=== PATIENT | female | born 1990 | race Caucasian/White ===

== ENCOUNTER → 2021-08-02 15:16 | Outpatient (CLI) | payer OTHER, SELFPAY ==
--- NOTE | ~2021-08-02 | US_ITS ---
EXAMINATION: US pelvic complete DATE: 08/02/2021 15:40 INDICATION: Pelvic and perineal pain Comparison:No prior studies for comparison. TECHNIQUE: Multiple transabdominal and endovaginal sonographic images of the pelvis performed. FINDINGS: The uterus measures 10.1 x 4.6 x 6 cm. The endometrial complex measures 1 cm. The right ovary measures 4.7 x 3.3 x 3.3 cm and the left ovary measures 3.4 x 3.2 x 3.3 cm. There ar e small follicles in each ovary. Normal doppler signal in both ovaries. There is no free fluid in the pelvis. There are no abnormal masses seen on either side. IMPRESSION: 1. Mildly enlarged uterus. Reviewed, dictated and finalized at location A. ENSATION SPECIALIST IMPRESSION: 1. Mildly enlarged uterus.
== END ==
PROVIDERS: Visit Provider Nurse Practitioner
DX: R10.2 Pelvic and perineal pain (principal); N85.2 Hypertrophy of uterus
CPT/HCPCS: 76856

== ENCOUNTER → 2021-10-25 10:43 | Outpatient (CLI) | payer OTHER, SELFPAY ==
--- NOTE | ~2021-10-25 | US_ITS ---
US OB transvaginal DATE: 10/25/2021 11:05 INDICATION: age determination TECHNIQUE: Real-time imaging via transvaginal approach and Doppler analysis COMPARISON: 08/02/2021 pelvic ultrasound FINDINGS: The uterus measures 8.7 cm height, There is a laterally situated rounded sonolucency on the right, with surrounding hyperechogenicity, w hich may be an intrauterine gestational sac displaced by large uterine fibroid or possibly situated i n a bicornuate uterus. Mean sac diameter of 0.67 cm. No pole or yolk sac is identified. Follow- up ultrasound imaging is recommended. Right ovary measures 3.7 x 3.2 x 3.9 cm. Left ovary measures 2.7 x 1.8 x 1.7 cm. IMPRESSION: Possible right lateral early intrauterine gestational sac; recommend short-term follow-up obstetrical ultrasound imaging Reviewed, dictated and finalized at Location A. Reviewed, dictated and finalized at location A. IMPRESSION: Possible right lateral early intrauterine gestational sac; recommen d short-term follow-up obstetrical ultrasound imaging
== END ==
PROVIDERS: Visit Provider Obstetrics & Gynecology Gynecology
DX: O09.01 Supervision of pregnancy with history of infertility, first trimester (principal); Z3A.00 Weeks of gestation of pregnancy not specified
CPT/HCPCS: 76817

== ENCOUNTER → 2021-11-01 11:20 | Outpatient (CLI) | payer OTHER, SELFPAY ==
--- NOTE | ~2021-11-01 | US_ITS ---
EXAMINATION: US OB transvaginal DATE: 11/01/2021 11:49 INDICATION: Inappropriate change and quantitative hCG during first trimester TECHNIQUE: Real-time pelvic transabdominal and transvaginal ultrasound was performed. COMPARISON: 10/25/2021 FINDINGS: The uterus measures 10.3 x 5.5 x 6.6 cm. There is an intrauterine gestational sac. A 0.9 x 0.6 x 1.0 cm hypoechoic area seen adjacent to the gestational sac. No definite pole is identif ied. The mean sac diameter measures, which correlates with an estimated gestational age of 6 weeks an d 0 day(s) (+/-) 4 day(s). The right ovary measures 3.8 x 2.4 x 3.3 cm. The left ovary measures 2.7 x 2.0 x 3.0 cm. There is nor mal vascular flow in the ovaries. There is no free fluid in the pelvis. IMPRESSION: 1. Intrauterine gestational sac with an estimated gestational age of 6 weeks and 0 day(s) (+/-) 4 day (s) and an estimated delivery date of 06/27/2022. No definite pole identified. 2. Small subchorionic hematoma. Reviewed, dictated and finalized at location B. IMPRESSION: 1. Intrauterine gestational sac with an estimated gestational age of 6 weeks an d 0 day(s) (+/-) 4 day(s) and an estimated delivery date of 06/27/2022. No defi nite pole identified. 2. Small subchorionic hematoma.
== END ==
PROVIDERS: Visit Provider Obstetrics & Gynecology Gynecology
DX: O02.81 Inappropriate change in quantitative human chorionic gonadotropin (hCG) in early pregnancy (principal); Z3A.01 Less than 8 weeks gestation of pregnancy; O36.8911 Maternal care for other specified fetal problems, first trimester, fetus 1
CPT/HCPCS: 76817

== ENCOUNTER → 2021-11-08 08:05 | Outpatient (CLI) | payer OTHER, SELFPAY ==
--- NOTE | ~2021-11-08 | US_ITS ---
EXAMINATION: US OB transvaginal DATE: 11/08/2021 08:33 INDICATION: Spotting. Subchorionic hematoma. First trimester. TECHNIQUE: Real-time transvaginal pelvic ultrasound was performed. COMPARISON: Ultrasound 11/01/2021, 10/25/2021 FINDINGS: The uterus measures 11.4 x 7.0 x 6.9 cm. There is an intrauterine gestational sac. A yolk sac is iden tified. The crown rump length measures 1.3 cm, which correlates with an estimated gestational age of 7 weeks and 3 day(s) (+/-) 5 day(s). heart motion is identified measuring 158 beats per minute (bpm) by M-mode Doppler. There is a hypoechoic subchorionic hematoma measuring 1.7 x 0.5 x 1.1 cm. The right ovary measures 3.7 x 2.2 x 3.1 cm. The left ovary measures 3.4 x 2.4 x 2.9 cm. There i s no free fluid in the pelvis. IMPRESSION: 1. Single living intrauterine gestation with estimated date of delivery of 06/24/2022. 2. Small subchorionic hematoma. Reviewed, dictated and finalized at location A. IMPRESSION: 1. Single living intrauterine gestation with estimated date of delivery of 06/2022. 2. Small subchorionic hematoma.
== END ==
PROVIDERS: PCP Obstetrics & Gynecology Gynecology; Visit Provider Obstetrics & Gynecology Gynecology
DX: O26.859 Spotting complicating pregnancy, unspecified trimester (principal)
CPT/HCPCS: 76817

== ENCOUNTER → 2021-11-22 15:17 | Outpatient (CLI) | payer OTHER, SELFPAY ==
--- NOTE | ~2021-11-22 | US_ITS ---
EXAMINATION: US OB transvaginal DATE: 11/22/2021 15:55 INDICATION: Spotting and subchorionic hematoma during first trimester TECHNIQUE: Real-time pelvic transabdominal and transvaginal ultrasound was performed. COMPARISON: 11/08/2021 FINDINGS: The uterus measures 10.7 x 6.1 x 8.3 cm. There is an intrauterine gestational sac. There i s a 1.9 x 0.7 cm hypoechoic area adjacent to the gestational sac without significant change. A yolk s ac is identified. heart motion is identified measuring 168 beats per minute (bpm) by M-mode Dop pler. The crown rump length measures 2.9 cm , which correlates with an estimated gestational ag e of 9 weeks and 5 day(s) (+/-) 6 day(s). The left ovary is not visualized however no left adnexal abnormality is seen. The right ovary measure s 3.6 x 3.3 x 3.4 cm. There is normal vascular flow in the right ovary. There is no free fluid in the pelvis. IMPRESSION: 1. Live intrauterine with an estimated gestational age of 9 weeks and 5 day(s) (+/-) 6 day( s) and an estimated delivery date of 06/22/2022. 2. Small subchronic hematoma without significant change. Reviewed, dictated and finalized at location A. IMPRESSION: 1. Live intrauterine with an estimated gestational age of 9 weeks and 5 day(s) (+/-) 6 day(s) and an estimated delivery date of 06/22/2022. 2. Small subchronic hematoma without significant change.
== END ==
PROVIDERS: Visit Provider Obstetrics & Gynecology Gynecology
DX: O36.8911 Maternal care for other specified fetal problems, first trimester, fetus 1 (principal); Z3A.08 8 weeks gestation of pregnancy
CPT/HCPCS: 76817

== ENCOUNTER → 2021-12-21 11:45 | Outpatient (CLI) | payer OTHER, SELFPAY ==
--- NOTE | ~2021-12-21 | US_ITS ---
EXAMINATION: US OB limited DATE: 12/21/2021 12:04 INDICATION: Follow-up subchorionic hematoma TECHNIQUE: Real-time transabdominal obstetric ultrasound. FINDINGS: Comparison to ultrasound dated 11/22/2021 The uterus measures 14.7 x 8.5 x 1.2 cm. There is a single intrauterine with heart ra te of 144 BPM. No evidence for subchorionic hemorrhage on the current examination. Amniotic fluid is subjectively normal. IMPRESSION: 1. Single living intrauterine with heart rate of 144 BPM. 2: Interval resolution of subchorionic hematoma. Reviewed, dictated and finalized at location A.
== END ==
PROVIDERS: PCP Internal Medicine Geriatric Medicine; Visit Provider Obstetrics & Gynecology Gynecology
DX: O36.8910 Maternal care for other specified fetal problems, first trimester, not applicable or unspecified (principal); O26.851 Spotting complicating pregnancy, first trimester; Z3A.13 13 weeks gestation of pregnancy
CPT/HCPCS: 76815

== ENCOUNTER → 2022-02-01 15:22 | Outpatient (CLI) | payer OTHER, SELFPAY ==
--- NOTE | ~2022-02-01 | US_ITS ---
EXAMINATION: US OB /maternal detail DATE: 02/01/2022 16:16 INDICATION: anatomic survey. TECHNIQUE: Real-time ultrasound of the pelvis was performed. COMPARISON: Ultrasound 12/21/2021, 10/25/2021, 11/01/21 FINDINGS: There is a single living fetus in variable presentation. The placenta is anterior, 2.5 cm from the c ervix. heart rate is 161 beats per minute (bpm). The amniotic fluid volume is subjectively norm al. The following biometric data were obtained: Biparietal diameter (BPD): 4.7 cm; head circumference (HC): 18.4 cm; abdominal circumference (AC): 14 .4 cm; femur length (FL): 3.0 cm. These measurements are discordant with high HC/AC ratio. Estimated weight is 307 g +/- 46 g, which correlates with the 70th percentile when 06/26/22 is used as estimated date of delivery. As single measurements, these parameters are each equal to the following estimated gestational ages w ith ranges of +/- 2 standard deviations: BPD: 20 weeks 2 days (18 weeks 4 days - 22 weeks 0 days). HC: 20 weeks 5 days (19 weeks 2 days - 22 weeks 2 days). AC: 19 weeks 5 days (17 weeks 5 days - 21 weeks 6 days). FL: 19 weeks 3 days (17 weeks 4 days - 21 weeks 1 days). estimated gestational age based solely on measurements from this exam is 20 weeks 0 days +/- 1 weeks 3 days. The head and spine are not well visualized. The heart is not well visualized. The kidneys are n ot well visualized. The lip, diaphragm, stomach, and bladder are normal. There are two umbilical mikey rosie to yield a 3-vessel cord. The cord insertion is normal. IMPRESSION: 1. Single living fetus in variable presentation. 2. Estimated weight is 307 g +/- 46 g, which correlates with the 70th percentile when 06/26/22 is used as estimated date of delivery. This date was set by ultrasound on 11/01/21. 3. Discordant biometrics with high HC/AC ratio. 4. Poorly visualized head, spine, heart, and kidneys. Otherwise normal anatomic survey. Reviewed, dictated and finalized at location A. IMPRESSION: 1. Single living fetus in variable presentation. 2. Estimated weight is 307 g +/- 46 g, which correlates with the 70th pe rcentile when 06/26/22 is used as estimated date of delivery. This date was set by ultrasound on 11/01/21. 3. Discordant biometrics with high HC/AC ratio. 4. Poorly visualized head, spine, heart, and kidneys. Otherwise normal fe moni anatomic survey.
== END ==
PROVIDERS: PCP Advanced Practice Midwife; Visit Provider Advanced Practice Midwife
DX: Z34.92 Encounter for supervision of normal pregnancy, unspecified, second trimester (principal); Z3A.20 20 weeks gestation of pregnancy
CPT/HCPCS: 76805

== ENCOUNTER 2022-05-24 09:34 | Outpatient (CLI) | payer OTHER, SELFPAY ==
[2022-05-24] VITALS (24 sets, daily range): BP systolic 125–147; BP diastolic 63–83; PULSE 76–87; RESP 18; O2SAT 98–100
[2022-05-24 10:51] LABS: Add Urine Microscopic? YES; Appearance Urine Cloudy (Clear); Bacteria Urine Trace /hpf; Bilirubin Urine Negative (Negative); Blood Urine Negative (Negative); Color Urine Yellow (Yellow); Glucose Urine UA Negative (Negative); Ketones Urine 1+ mg/dL (Negative); Leukocyte Esterase Ur 3+ LEU/UL (NEGATIVE); Mucus Urine Few /lpf; Nitrate Urine Negative (Negative); Protein Urine Negative (Negative); Squamous Epithelial Cell Urine Many /hpf (Few); Urobilinogen Urine Negative mg/dL (<2.0)
[2022-05-24 10:57] LABS: Basophils Percent Auto 0.4 % (0.2-1.2); Eosinophils Absolute Auto 0.1 K/mm3 (0-0.3); Eosinophils Percent Auto 1.5 % (0-4.4); Hematocrit 32.2 % (37.0-47.0); Hemoglobin 10.2 g/dL (12.0-15.0); Immature Granulocyte Absolute 0.04 K/mm3 (0.00-0.031); Immature Granulocyte Percent A 0.5 % (0-0.5); Lymphocytes Absolute Auto 1.76 K/mm3 (0.9-3.2); Lymphocytes Percent Auto 21.6 % (18.3-44.2); Mean Corpuscular HGB Conc 31.7 g/dl (32-36); Mean Corpuscular Hemoglobin 28.3 pg (26-34); Mean Corpuscular Volume 89.4 fl (80-100); Mean Platelet Volume 10.1 fl (7.4-10.4); Monocytes Absolute Auto 0.6 K/mm3 (0.1-0.6); Monocytes Percent Auto 7.6 % (2.6-8.5); Neutrophils Absolute Auto 5.6 K/mm3 (1.3-6.7); Neutrophils Percent Auto 68.4 % (45.5-73.1); Platelet Count Result 192 k/mm3 (150-375); Red Cell Distribution Width 14.4 % (11.5-14.5); White Blood Count 8.1 K/mm3 (4.5-10.0)
[2022-05-24 10:59] LABS: Creatinine Urine 181.2 mg/dL; Total Protein Urine Random 7 mg/dL; Ur Ttl Prot Creatinine Ratio 0.04 mg/mg (0-0.20)
[2022-05-24 11:12] LABS: Alanine Aminotransferase 14 U/L (6-35); Albumin Level 3.8 g/dL (3.5-5.1); Alkaline Phosphatase 84 U/L (38-126); Anion Gap 13 mmol/L (8-16); Aspartate Amino Transferase 15 U/L (14-36); Bilirubin,Total 0.3 mg/dL (0.2-1.3); Blood Urea Nitrogen 6 mg/dL (7-17); Calcium 8.7 mg/dL (8.4-10.2); Carbon Dioxide 20 mmol/L (22-30); Chloride 105 mmol/L (98-107); Estimated Glomerular Filt Rate > 60; Glucose 83 mg/dL (65-110); Potassium 3.6 mmol/L (3.4-5.0); Sodium 138 mmol/L (137-145); Uric Acid 4.7 mg/dL (2.5-7.5)
--- NOTE | 2022-05-24 11:22 | PC.NURSE ---
[address] Kohler, labs and BP reviewed. Orders to send patient home with a 24 hour urine.
== END 2022-05-24 11:33 | disposition home or self-care (01) ==
LOC: ANHOBOP 09:46 → ANHOBPP 09:47
PROVIDERS: PCP Internal Medicine Geriatric Medicine; Visit Provider Obstetrics & Gynecology Gynecology
DX: O13.9 Gestational [pregnancy-induced] hypertension without significant proteinuria, unspecified trimester (principal); Z3A.00 Weeks of gestation of pregnancy not specified
CPT/HCPCS: 36415; 59025; 80053; 81001; 82570; 84156; 84550; 85025; 87086; 87088; 99199

== ENCOUNTER 2022-05-25 14:49 | Outpatient (NON) | payer OTHER, SELFPAY ==
[2022-05-25 16:23] VITALS: BMI 62.4
[2022-05-25 19:28] LABS: Collection Time Urine 24 HOURS
[2022-05-25 19:38] LABS: Total Volume 24 Hour Urine 1100 ml
[2022-05-25 19:47] LABS: Creatinine Clearance Urine 164.1 ml/min (75-125); Creatinine Urine 182.6 mg/dL; Patient Weight 352 Lbs; Total Protein Urine 24 Hr 66 mg/24hr (28-141); Total Protein Urine Random 6 mg/dL
== END 2022-05-25 14:50 | disposition home or self-care (01) ==
PROVIDERS: PCP Internal Medicine Geriatric Medicine; Visit Provider Obstetrics & Gynecology Gynecology
DX: O16.3 Unspecified maternal hypertension, third trimester (principal); Z3A.37 37 weeks gestation of pregnancy
CPT/HCPCS: 81050; 82575; 84156

== ENCOUNTER 2022-06-05 13:15 | Outpatient (CLI) | payer OTHER, SELFPAY ==
[2022-06-05 13:41] VITALS: BP 133/76; PULSE 91
[2022-06-05 13:46] VITALS: BP 122/74; PULSE 84
[2022-06-05 13:47] VITALS: BP 133/76; PULSE 81; BMI 51.9
[2022-06-05 14:01] VITALS: BP 112/76; PULSE 82
[2022-06-05] MEDS: ACETAMINOPHEN/BUTALBITAL/CAFFEINE 325-50-40 MG TABLET (FIORICET) 1 TAB PO (14:08)
[2022-06-05 14:12] VITALS: BP 112/76; PULSE 79
--- NOTE | 2022-06-05 15:21 | PC.NURSE ---
Dr. Gudino informed headache has decreased from a 6 to a 3, nausea has resolved. Pt had c/o feeling some leakage of fluid once yesterday; ROM plus test performed and was negative. Pt had felt a few more tightenings and requested being checked because her SVE in the office this week was 3 cm. SVE external os 3 cm, 60%, and ballotable. OK to discharge to home.
== END 2022-06-05 15:32 | disposition home or self-care (01) ==
LOC: ANHOBOP 13:20 → ANHOBPP 13:21
PROVIDERS: PCP Internal Medicine Geriatric Medicine; Visit Provider Obstetrics & Gynecology Gynecology
DX: R51.9 Headache, unspecified (principal)
CPT/HCPCS: 59025; 84112; 99199; A9270

== ENCOUNTER 2022-06-19 00:31 | Inpatient (IN) | payer OTHER, SELFPAY ==
[2022-06-19] VITALS (42 sets, daily range): BP systolic 56–226; BP diastolic 33–210; PULSE 78–251; RESP 16–18; TEMP 36.2–36.8; O2SAT 97–100
--- NOTE | 2022-06-19 00:31 | LDADM ---
This patient, Diya Rangel, was admitted to Labor/Delivery/Recovery 105 on 06/19/22 at 00:31. Plans for labor, pain management and were discussed with patient. Patient/family oriented to hospital policies and general routines including ID bracelet, bed and alarms, visiting hours, pain management, procedures, bathroom and other care routines, personal items, smoking policy, room service/diet and guest tray routines, infant security routines, and visiting hours. Patient/Family are encouraged to report perceived risks to care and to ask questions if they do not understand what they are told or what they should do. See OBIX for further documentation.
--- NOTE | 2022-06-19 01:03 | WPDANESEPP ---
Anes - Eval Pre Procedure Procedure: labor epidural Date/Time: 06/19/22 01:03 Surgeon: tiffani Preop Diagnosis: pain during labor Pre Op Diagnosis: Induction of Labor Patient Data Age: 31 Gender: F Height: Weight: Last Vital Signs Pulse 107 H 06/19/22 01:00 ANIMAL SITTER BP 162/99 H 06/19/22 01:00 ANIMAL SITTER Pulse Ox 99 06/19/22 01:56 ANIMAL SITTER Allergies Allergy/AdvReac Type Severity Reaction Status Date / Time No Known Allergies Allergy Verified 05/30/22 13:23 Home Medications Medication Instructions Recorded Confirmed Type aspirin 81 mg tablet,delayed 81 mg PO DAILY 05/30/22 06/05/22 History release (Antione Low Dose Aspirin) insulin NPH isoph U-100 human 100 45 unit subcut HS 05/30/22 06/05/22 History unit/mL subcutaneous suspension (Humulin N NPH U-100 Insulin (isophane susp)) metformin 500 mg tablet 1,000 mg PO HS 05/30/22 06/05/22 History prenat.vits,jignesh,dqs-fcbr-tmxri 1 tablet PO DAILY 05/30/22 06/05/22 History acetaminophen 500 mg tablet 1,000 mg PO Q6H PRN Headache or 06/05/22 06/05/22 History (Tylenol Extra Strength) pain Laboratory Tests 06/19/22 06/19/22 06/19/22 01:21 ANIMAL SITTER 01:21 ANIMAL SITTER 01:21 ANIMAL SITTER WBC 10.6 K/mm3 H K/mm3 (4.5-10.0) RBC 4.02 M/mm3 L M/mm3 (4.2-5.4) Hgb 11.2 g/dL L g/dL (12.0-15.0) Hct 34.7 % L % (37.0-47.0) MCV 86.3 fl fl (80-100) MCH 27.9 pg pg (26-34) MCHC 32.3 g/dl g/dl (32-36) RDW 14.5 % % (11.5-14.5) Plt Count 251 k/mm3 k/mm3 (150-375) MPV 10.0 fl fl (7.4-10.4) Immature Gran % (Auto) 0.4 % % (0-0.5) Neut % (Auto) 62.1 % % (45.5-73.1) Lymph % (Auto) 28.0 % % (18.3-44.2) [place] % (Auto) 7.6 % % (2.6-8.5) Eos % (Auto) 1.4 % % (0-4.4) Baso % (Auto) 0.5 % % (0.2-1.2) Lymph # (Auto) 2.97 K/mm3 K/mm3 (0.9-3.2) [place] # (Auto) 0.8 K/mm3 H K/mm3 (0.1-0.6) Eos # (Auto) 0.2 K/mm3 K/mm3 (0-0.3) Baso # (Auto) 0.1 K/mm3 K/mm3 (0.0-0.1) Abs Immat Gran (auto) 0.04 K/mm3 H K/mm3 (0.00-0.031) Absolute Neuts (auto) 6.6 K/mm3 K/mm3 (1.3-6.7) Absolute Nucleated RBC 0.0 K/mm3 K/mm3 (0.0-0.012) Nucleated RBC % 0.0 % % (0.0-0.2) Sodium 135 mmol/L L mmol/L (137-145) Potassium 4.1 mmol/L mmol/L (3.4-5.0) Chloride 104 mmol/L mmol/L (98-107) Carbon Dioxide 21 mmol/L L mmol/L (22-30) Anion Gap 10 mmol/L mmol/L (8-16) BUN 10 mg/dL mg/dL (7-17) Creatinine 0.70 mg/dL mg/dL (0.7-1.0) Estim Creat Clear Calc Not Reportable Estimated GFR > 60 (59 - ) Glucose 92 mg/dL mg/dL (65-110) Calcium 9.4 mg/dL mg/dL (8.4-10.2) Total Bilirubin 0.3 mg/dL mg/dL (0.2-1.3) AST 15 U/L U/L (14-36) ALT 14 U/L U/L (6-35) Alkaline Phosphatase 132 U/L H U/L (38-126) Total Protein 7.0 g/dL g/dL (6.3-8.2) Albumin 4.0 g/dL g/dL (3.5-5.1) RPR Pending Patient hx anesthesia problems: none Family hx anesthesia problems: none Results Review: All pre-operative results and documents have been reviewed as part of the pre-operative evaluation. FOR[facility]LY [facility] Past Medical History Medical History (Updated 06/19/22 @ 01:04 ANIMAL SITTER by Gillian Juarez CRNA) Gestational diabetes Intrauterine Obesity Family History Family History (Updated 05/30/22 @ 13:41 by Claribel Khan RN) Mother Diabetes mellitus Hypertension Grandparent Heart attack Cerebrovascular accident Father Diabetes mellitus Social History Social History Substance use: never Spiritual care concerns: No Exam Day of Procedure 06/19/22 01:03
[2022-06-19] MEDS: LACTATED RINGERS 1,000 ML 125 ML IV CONT (01:15)
[2022-06-19 01:26] LABS: Basophils Absolute Auto 0.1 K/mm3 (0.0-0.1); Basophils Percent Auto 0.5 % (0.2-1.2); Eosinophils Absolute Auto 0.2 K/mm3 (0-0.3); Eosinophils Percent Auto 1.4 % (0-4.4); Hematocrit 34.7 % (37.0-47.0); Hemoglobin 11.2 g/dL (12.0-15.0); Immature Granulocyte Absolute 0.04 K/mm3 (0.00-0.031); Immature Granulocyte Percent A 0.4 % (0-0.5); Lymphocytes Absolute Auto 2.97 K/mm3 (0.9-3.2); Mean Corpuscular HGB Conc 32.3 g/dl (32-36); Mean Corpuscular Hemoglobin 27.9 pg (26-34); Mean Corpuscular Volume 86.3 fl (80-100); Monocytes Absolute Auto 0.8 K/mm3 (0.1-0.6); Monocytes Percent Auto 7.6 % (2.6-8.5); Neutrophils Absolute Auto 6.6 K/mm3 (1.3-6.7); Neutrophils Percent Auto 62.1 % (45.5-73.1); Platelet Count Result 251 k/mm3 (150-375); Red Blood Count 4.02 M/mm3 (4.2-5.4); Red Cell Distribution Width 14.5 % (11.5-14.5); White Blood Count 10.6 K/mm3 (4.5-10.0)
[2022-06-19 01:36] LABS: Alanine Aminotransferase 14 U/L (6-35); Alkaline Phosphatase 132 U/L (38-126); Anion Gap 10 mmol/L (8-16); Aspartate Amino Transferase 15 U/L (14-36); Bilirubin,Total 0.3 mg/dL (0.2-1.3); Blood Urea Nitrogen 10 mg/dL (7-17); Calcium 9.4 mg/dL (8.4-10.2); Carbon Dioxide 21 mmol/L (22-30); Chloride 104 mmol/L (98-107); Estimated Glomerular Filt Rate > 60; Glucose 92 mg/dL (65-110); Potassium 4.1 mmol/L (3.4-5.0); Sodium 135 mmol/L (137-145)
[2022-06-19] MEDS: OXYTOCIN 30 UNITS/NS 500 ML 30 UNITS/500 ML BAG 999 UNITS IV CONT (02:06)
--- NOTE | 2022-06-19 02:20 | P.PCNOB_ITS ---
OB - Delivery Note Procedure Delivery date: 06/19/22 Procedure: Events: Gestational Diabetes (GDMA2) Induction method: None Delivery monitor: External FHT and External Uterine Route of delivery: Laceration Description: Periurethral and Vaginal Delivery repair: vicryl (3-0) Specimen: Yes (placenta) Quantitative Blood Loss (ml): 100 Anesthesia type: Epidural Disposition: Floor [place] Baby Date of : 06/19/22 Weeks of gestation at delivery: 38 Infant gender: Male Weight (pounds): 8 Weight (ounces): 3 presentation: vertex position: Right Occiput Anterior Placenta delivery description: Spontaneous Cord Vessel Description: 3 Vessels score one minute: 8 score five minutes: 9 Narrative: 38 6/7 wks here in labor delivered
--- NOTE | 2022-06-19 02:20 | WPDOBADMIT ---
Obstetrics - Admit Note Admission Note: record reviewed. No pertinent additions to the history and/or any subsequent changes in the physical findings that are not consistent with the expected course of the were found. Additions to the history and/or subsequent changes in the physical findings follow. None. Here in labor with SROM. C/+1 on my arrival. FHTs Reactive
--- NOTE | 2022-06-19 02:22 | PM.OBDSVD ---
DS: Admitting Diagnosis Discharge Date 06/20/22 Admitting Diagnosis IUP 38 6/7 wks GDMA2 Labor with SROM DS: Discharge Diagnosis Discharge Diagnosis (1) (normal spontaneous vaginal delivery): Code(s): O80 - Encounter for full-term uncomplicated delivery Status: Acute (2) GDM, class A2: Code(s): O24.419 - Gestational diabetes mellitus in , unspecified control Status: Acute OB - DS: Summary OB Procedures : NST and Ultrasound OB Procedures Intrapartum: Spontaneous Vag Delivery OB Procedures: : None Peripartum Data Infant Delivery Method: Natural Vaginal Laceration Description: Periurethral and Vaginal - 2nd Degree complications: none Status at Discharge Functional status at discharge: independent ambulation Overall status at discharge: patient is progressing back to baseline Time Spent with Patient Time attestation: Total time spent providing and/or coordinating discharge services: DS: Data Data Completed and Pending Pending studies at discharge: Pending at discharge 06/19/22 02:06 Surgical [PTH] Routine Labs on day of discharge: Labs from last 24 hours 06/19/22 06/19/22 06/19/22 01:21 TURBINE ATTENDANT 01:21 TURBINE ATTENDANT 01:21 TURBINE ATTENDANT WBC RBC Hgb Hct MCV MCH MCHC RDW Plt Count MPV Immature Gran % (Auto) Neut % (Auto) Lymph % (Auto) [place] % (Auto) Eos % (Auto) Baso % (Auto) Lymph # (Auto) [place] # (Auto) Eos # (Auto) Baso # (Auto) Abs Immat Gran (auto) Absolute Neuts (auto) Absolute Nucleated RBC Nucleated RBC % Sodium 135 L Potassium 4.1 Chloride 104 Carbon Dioxide 21 L Anion Gap 10 BUN 10 Creatinine 0.70 Estim Creat Clear Calc Not Reportable Estimated GFR > 60 Glucose 92 Calcium 9.4 Total Bilirubin 0.3 AST 15 ALT 14 Alkaline Phosphatase 132 H Total Protein 7.0 Albumin 4.0 RPR Pending Blood Type A Positive Antibody Screen Negative 06/19/22 01:21 TURBINE ATTENDANT WBC 10.6 H RBC 4.02 L Hgb 11.2 L Hct 34.7 L MCV 86.3 MCH 27.9 MCHC 32.3 RDW 14.5 Plt Count 251 MPV 10.0 Immature Gran % (Auto) 0.4 Neut % (Auto) 62.1 Lymph % (Auto) 28.0 [place] % (Auto) 7.6 Eos % (Auto) 1.4 Baso % (Auto) 0.5 Lymph # (Auto) 2.97 [place] # (Auto) 0.8 H Eos # (Auto) 0.2 Baso # (Auto) 0.1 Abs Immat Gran (auto) 0.04 H Absolute Neuts (auto) 6.6 Absolute Nucleated RBC 0.0 Nucleated RBC % 0.0 Sodium Potassium Chloride Carbon Dioxide Anion Gap BUN Creatinine Estim Creat Clear Calc Estimated GFR Glucose Calcium Total Bilirubin AST ALT Alkaline Phosphatase Total Protein Albumin RPR Blood Type Antibody Screen Discharge Plan Discharge Attending physician on discharge: Odalis Kohler Discharging Clinician: Odalis Kohler Anticipated Discharge Date/Time: 06/21/22 02:23 Patient Disposition: Home, Self-Care Activity: may shower and pelvic rest Diet: regular Patient Instructions: Antibiotic Form Stand Alone Forms: General Discharge Information Follow-up/Referrals: Odalis Kohler MD [Physician] - 6 Weeks Discharge Medications: Continued acetaminophen [Tylenol Extra Strength] 500 mg Tablet 1,000 mg PO Q6H PRN (Reason: Headache or pain) metformin 500 mg Tablet 1,000 mg PO HS #2 Tablet 1 tablet PO DAILY Discontinued aspirin [Antione Low Dose Aspirin] 81 mg Tablet,Delayed Release (Dr/Ec) 81 mg PO DAILY Humulin N NPH U-100 Insulin 100 unit/mL Suspension 45 unit SUBCUT HS Date of admission: 06/19/22 00:31 Primary Care Provider: Gonzalez,Dre Nguyen Admitting Provider: Odalis Kohler Attending physician on admission: Odalis Kohler Condition: Stable
[2022-06-19] MEDS: BENZOCAINE 20% AER SPR (*SP) 56 GM CAN 1 SPRAY TOPICAL (04:33)
[2022-06-19] MEDS: WITCH HAZEL 40 PADS 1 PAD TOPICAL (04:33)
--- NOTE | 2022-06-19 06:46 | OBPPTRN ---
Patient transferred to post room #287. Support person present. Oriented to unit, room, information board, rooming in, admission packet and security measures. Patient verbalizes understanding.
[2022-06-19] MEDS: MULTIVIT/MIN/PREN/FOL AC/IRON TABLET 1 TAB PO (08:01)
[2022-06-19] MEDS: DOCUSATE SODIUM 100 MG CAPSULE PO (08:01)
[2022-06-19] MEDS: IBUPROFEN 600 MG TABLET PO (19:15)
[2022-06-19] MEDS: metFORMIN HCL 500 MG TABLET 1000 MG PO (20:39)
[2022-06-20 04:53] LABS: Hematocrit 28.7 % (37.0-47.0); Hemoglobin 9.1 g/dL (12.0-15.0)
--- NOTE | 2022-06-20 07:24 | WPDANLDPN2 ---
Anes-Prog Note L&D Date/Time: 06/20/22 07:24 Comfortable throughout: labor and delivery Neuraxial method: epidural Epidural/Spinal procedure site: clean & non-tender Neuro status: Neuro function grossly intact. Cardiovascular status: normal Respiratory status: normal Airway patency: baseline Mental status: baseline Post-Op hydration status: normal Vital Signs: Last Vital Signs Temp 36.2 C L 06/19/22 23:35 Pulse 78 06/19/22 23:35 Resp 16 06/19/22 23:35 BP 113/56 L 06/19/22 23:35 Pulse Ox 100 06/19/22 23:35 O2 Del Method Room Air 06/19/22 19:10 Pain score (VAS): 08/23 Post-procedural complaints: none Patient feedback: Patient satisfied with anesthetic care.
[2022-06-20] MEDS: IBUPROFEN 600 MG TABLET PO (08:45)
[2022-06-20] MEDS: POLYSACCHARIDE IRON COMPLEX 150 MG CAPSULE PO (08:45)
[2022-06-20] MEDS: MULTIVIT/MIN/PREN/FOL AC/IRON TABLET 1 TAB PO (08:45)
[2022-06-20] MEDS: LANOLIN (LANSINOH) 7.5 GM CREAM 1 APPLIC TOPICAL (08:46)
[2022-06-20 09:12] VITALS: BP 115/50; PULSE 75; RESP 16; TEMP 36.4; O2SAT 100
--- NOTE | 2022-06-20 09:31 | P.PNOB_ITS ---
OB - PN: Subj Subjective Date/time seen: 06/20/22 09:31 Patient comments: no complaints and pain well controlled baby status: doing well OB - PN: Obj Data Labs CBC & Chem 7: 06/20/22 04:44 06/19/22 01:21 TESTING MACHINE OPERATOR Labs: Laboratory Results - last 24 hr 06/20/22 04:44 Hgb 9.1 L Hct 28.7 L OB - PN A/P Plan day: 1 Plan: routine care, discharge home, follow up 6 weeks and other (Plans BTL after 6 wks) Time Spent With Patient Time: Total time spent is greater than 50% in coordination of care (as documented) at patient's floor/unit and/or counseling patient: Exam : Bimanual exam- vagina & uterus: other (Uterus firm, nt @U)
--- NOTE | 2022-06-20 10:17 | PC.NURSE ---
Patient viewed the discharge video Mother & Baby Care, The First Two Weeks . Patient was given the opportunity and encouraged to ask questions. Patient verbalized understanding of information shared and has been given the mother/baby guide for home reference.
[2022-06-20 12:13] LABS: Rapid Plasma Reagin Non-Reactive (NonReactive)
[2022-06-21 07:54] VITALS: BP 129/62; PULSE 82; RESP 20; TEMP 36.9; O2SAT 100
== END 2022-06-20 13:30 | disposition home or self-care (01) | DRG 806 ==
LOC: ANHLDR 02:24 → ANHOB2 04:44
PROVIDERS: Admitting Provider Obstetrics & Gynecology Gynecology; PCP Internal Medicine Geriatric Medicine; Visit Provider Obstetrics & Gynecology Gynecology
DX: O24.429 Gestational diabetes mellitus in childbirth, unspecified control (principal); O71.4 Obstetric high vaginal laceration alone; Z37.0 Single live birth; Z3A.38 38 weeks gestation of pregnancy; O71.82 Other specified trauma to perineum and vulva
CPT/HCPCS: 36415; 80053; 85014; 85018; 85025; 86592; 86850; 86900; 86901; 88307; A9270; J2590; J2795; J7120

== ENCOUNTER 2022-09-19 00:25 | Day surgery (SDC) | payer OTHER, SELFPAY ==
[2022-09-13 15:34] VITALS: BMI 49.6
--- NOTE | 2022-09-13 15:41 | PC.NURSE ---
Report to the Outpatient Waiting Room, entrance under the green pavilion located off [facility], at time 1330 on date 09/19/22. Planned Procedure Time: 1530. Time changes happen often and if your time is changed the preop area will call you the afternoon before. - You and your visitor will be asked to self-screen and do not enter if you have any COVID symptoms. - Only one visitor is requested with a max of two and NO children visitors are allowed at this time. - The patient visitor may be requested to leave or wait in car when not with patient due to distancing restrictions. - A mask is optional within the hospital at this time. Patients may have clear liquids (water, carbonated beverages, clear teas, apple juice) until 3 hours prior to surgery with a maximum of 20 ounces. - No food from midnight until time of surgery Take the following medications with a SIP of water the morning of surgery: N/A DO NOT STOP ANY OF YOUR OTHER PRESCRIPTION MEDICATIONS PRIOR TO SURGERY?EXCEPT THE FOLLOWING Medications to discontinue per physician: N/A Date to take last dose: N/A Please no make-up, nail arabic, hairspray, perfume, deodorant, or body powder the day of surgery. No jewelry (including any body piercings) or valuables the day of surgery, leave them at home. Please take a shower or bath the night before, or the morning of, surgery with an antibacterial soap. Wear comfortable, loose fitting clothing. - Jewelry must be removed prior to entering the operating room. Rings and piercings that are not removed may be cut off. - The hospital will not accept responsibility for valuables. - Please leave all valuables, including medications, at home the day of surgery. If you are going home after surgery, a licensed [place] driver must drive you home. - NO public transportation without another adult if you receive anesthesia. - We recommend that an adult stay with you for 24 hours following discharge. - We also recommend that you do not drive, make important decision, drink alcoholic beverages, or take any drugs that were not prescribed by your health care provider for at least 24 hours after your discharge time. Follow any additional instructions given to you from your surgeon. If you or anyone in your household have experienced Covid symptoms in the past week, please notify your surgeon or the nurse liaison at the phone number below for possible testing. Telephone instructions given to PT - JACQUIE MADRIGAL and asked if any additional questions and then verbalized understanding. Patient advised to call surgeon office or pre surgery nurse liaison [phone] if any additional questions.
[2022-09-19] VITALS (7 sets, daily range): BP systolic 122–144; BP diastolic 66–76; PULSE 56–73; RESP 13–20; TEMP 36.1–37; O2SAT 98–100
--- NOTE | 2022-09-19 10:56 | WPDHPUPDATE1 ---
History and Physical Update Update Date/Time: 09/19/22 10:56 History and Physical has been reviewed, including an updated exam of the patient. There are NO changes in the patient's condition. Risks, benefits, and alternatives have been discussed and questions answered. Patient agrees to proceed with procedure.
--- NOTE | 2022-09-19 10:56 | PM.HPGS ---
History of Present Illness History of Present Illness Consent: Risks, benefits, and alternatives have been discussed and questions answered. Patient agrees to proceed with procedure. Chief complaint: desires sterilization Narrative: Diya Rangel is a 32 year old female who has completed her childbearing and requests permanent sterilization. The plan is to proceed with bilateral salpingectomy laparoscopically. Risks of infection, bleeding, injury to internal organs, and tubal failure with increased ectopic are discussed. The patient is aware this is a permanent sterilizing procedure that will render her unable to have children naturally. Patient voices understanding and agrees to proceed. Review of Systems Review of Systems: not repeated day of surgery; patient states no changes in status PMFSH Past Medical History Medical History (Updated 09/19/22 @ 11:00 by Odalis Kohler MD) Migraine (normal spontaneous vaginal delivery) x2 Obesity BMI 50 Polycystic ovarian syndrome Surgical History Surgical History (Updated 09/19/22 @ 10:58 by Odalis Kohler MD) History of tonsillectomy Family History Family History (Updated 05/30/22 @ 13:41 by Claribel Khan RN) Mother Diabetes mellitus Hypertension Grandparent Heart attack Cerebrovascular accident Father Diabetes mellitus Social History Social History Smoking status: Never smoker Alcohol intake: never Substance use: never Substance use type: does not use Lack of Transportation: No Lack of Food: Never True Current Housing: I Have Housing Concerned About Future Housing: No Difficulty Paying Gas/Electric Bills: No Difficulty Paying for Meds: No Currently Unemployed: No Education: Decline to Answer Difficulty w/ Childcare or Family Care: No Living arrangements: with family Spiritual care concerns: No Meds Home Medications and Allergies Home Medications Medication Instructions Recorded Confirmed Type metformin 500 mg tablet 1,000 mg PO HS 05/30/22 09/13/22 History norethindrone 1 mg-ethinyl 1 tablet PO HS 09/13/22 09/13/22 History estradiol 20 mcg (24)-iron 75 mg (4) tablet () Allergies Allergy/AdvReac Type Severity Reaction Status Date / Time No Known Allergies Allergy Verified 09/13/22 15:32 Exam Const: General: obese ( 292) Orientation/consciousness: patient oriented x3 Resp: Effort & Inspection: normal respiratory effort GI: GI Palp: Yes Soft to palpation, No Tenderness to palpation present (GI) and No Palpable mass present : External Female Exam: normal external appearance Speculum Exam - Vagina: normal appearance of the vagina and normal vaginal discharge Speculum Exam - Cervix: normal appearance of the cervix Bimanual exam- vagina & uterus: uterine size normal and consistency normal Bimanual Exam- Adnexa, other: normal adnexae and No adnexal tenderness Neuro: General: patient oriented x3 Assessment and Plan Assessment and plan (1) Encounter for sterilization: Code(s): Z30.2 - Encounter for sterilization Status: Acute Assessment and Plan: plan to proceed with laparoscopic bilateral salpingectomies for sterilization
[2022-09-19] MEDS: ACETAMINOPHEN 500 MG TABLET 1000 MG PO (12:29)
[2022-09-19 13:00] LABS: Glucose Point of Care 85 mg/dl (65-105)
[2022-09-19] MEDS: LACTATED RINGERS 1,000 ML 30 ML IV CONT ×2 (13:00→15:42)
[2022-09-19] MEDS: KETOROLAC 15 MG/ML VIAL (*BKC) IV PUSH (13:02)
--- NOTE | 2022-09-19 13:34 | P.PNAN_ITS ---
Anes - Initial Pre Proc Eval Procedure: Operation Date: 09/19/22 15:30 Proposed Procedures p Laparoscopic Bilateral Salpingectomy - Odalis Kohler MD Date/Time: 09/19/22 13:34 Surgeon: Odalis Kohler MD Pre Op Diagnosis: desires sterilization Patient Data Age: 32 Gender: F Height: 1.63 m Weight: 131.7 kg Last Vital Signs Temp 37.0 C 09/19/22 12:40 Pulse 73 09/19/22 12:40 Resp 16 09/19/22 12:40 BP 144/66 H 09/19/22 12:40 Pulse Ox 100 09/19/22 12:40 O2 Del Method Room Air 09/19/22 12:40 Allergies Allergy/AdvReac Type Severity Reaction Status Date / Time No Known Allergies Allergy Verified 09/19/22 12:25 Home Medications Medication Instructions Recorded Confirmed Type metformin 500 mg tablet 1,000 mg PO HS 05/30/22 09/19/22 History norethindrone 1 mg-ethinyl 1 tablet PO HS 09/13/22 09/19/22 History estradiol 20 mcg (24)-iron 75 mg (4) tablet () Laboratory Tests 09/19/22 12:58 POC Capillary Glucose 85 mg/dl mg/dl (65-105) Patient hx anesthesia problems: none and other (motion sickness) Family hx anesthesia problems: none Results Review: All pre-operative results and documents have been reviewed as part of the pre- operative evaluation. COUNT INCLUDES THE [facility] Past Medical History Medical History Migraine (normal spontaneous vaginal delivery) x2 Obesity BMI 50 Polycystic ovarian syndrome Surgical History Surgical History History of tonsillectomy Family History Family History Mother Diabetes mellitus Hypertension Grandparent Heart attack Cerebrovascular accident Father Diabetes mellitus Social History Social History Smoking status: Never smoker Alcohol intake: never Substance use: never Substance use type: does not use Lack of Transportation: No Lack of Food: Never True Current Housing: I Have Housing Concerned About Future Housing: No Difficulty Paying Gas/Electric Bills: No Difficulty Paying for Meds: No Currently Unemployed: No Education: Decline to Answer Difficulty w/ Childcare or Family Care: No Living arrangements: with family Spiritual care concerns: No Anes - Eval Final PreProcedure Day of Procedure 09/19/22 13:34 Patient weight: morbidly obese Heart: regular rate and rhythm Lungs: clear to auscultation Airway: Mallampati scale class II Neurological: alert and oriented Last oral intake: >/= 8 hours ASA classification: III Emergent: no Anesthetic plan: proceed Anesthesia type and monitoring: general ETT and standard monitoring Results Review: All pre-operative results and documents have been reviewed as part of the pre- operative evaluation. Informed Consent: The patient's anesthetic plan and its attendant risks and benefits were discussed with the patient/family/POA. Questions were solicited and answers provided to the satisfaction of the patient/fam
--- NOTE | 2022-09-19 15:33 | P.OP_ITS ---
Procedure Note - Detailed Date of Procedure 09/19/22 Pre-op Diagnosis desires sterilization Post-op Diagnosis Same Procedure Performed Laparoscopic bilateral salpingectomies Surgeon Odalis Kohler MD Anesthesia General Findings normal-appearing tubes, ovaries, uterus Description of Procedure The patient was taken to the operating room and placed under general anesthesia in the dorsal lithotomy position. She was prepped and draped in the usual sterile fashion. Bladder was drained with a red rubber catheter. The bivalve speculum was placed in the vagina and the anterior lip of the cervix grasped with a tenaculum. The acorn manipulator was placed and the speculum removed. Attention was turned to the abdomen where a vertical skin incision was made at the base of the umbilicus. The abdomen is tented with towel clamps and the long Veress needle placed. Opening patient pressure was 9mmHg and water drop test is normal. Pneumoperitoneum was obtained to a patient pressure of 15mmHg. The Veress needle was then removed and the long 5mm Optiview port placed. Intra- abdominal placement was confirmed with laparoscope. The patient was placed in Trendelenburg and a 2nd and 3rd port are placed a 3cm from the midline on each side approximately 4cm above the symphysis pubis. The ports are placed under direct visualization. The blunt probe was used to bring the tubes into the surgical field. The right tube was grasped with an atraumatic grasper and elevated. The LigaSure was used to cauterize and cut the mesosalpinx and crossclamped the tube proximally 1cm from the cornua. The identical procedure was performed on the left side. Good hemostasis is noted at both pedicles. The lower ports are removed under visualization and the pneumoperitoneum reduced. The midline port is also removed. Skin incisions were closed using 4-0 nylon in an interrupted fashion sterile bandages applied. Vaginal instruments are removed. Sponge, needle, and instrument counts are correct per the OR staff. Patient is awakened from anesthesia and taken to recovery in stable condition. Estimated Blood Loss 5 Drains No Packing No Pathology Yes (bilateral tubes) Complications No immediate complications Condition Stable Disposition PACU
--- NOTE | 2022-09-19 16:16 | SUR.PHASEI ---
1610: Simple mask removed.
[2022-09-19] MEDS: SCOPOLAMINE 1.5 MG PATCH TRANSDERM (17:08)
== END 2022-09-19 17:30 | disposition home or self-care (01) ==
PROVIDERS: PCP Internal Medicine Geriatric Medicine; Visit Provider Obstetrics & Gynecology Gynecology
PROC: (CPT 49320; principal; 2022-09-19 15:30)
DX: Z30.2 Encounter for sterilization (principal); N83.8 Other noninflammatory disorders of ovary, fallopian tube and broad ligament; E28.2 Polycystic ovarian syndrome; Z79.84 Long term (current) use of oral hypoglycemic drugs; E66.01 Morbid (severe) obesity due to excess calories; Z68.42 Body mass index [BMI] 45.0-49.9, adult
CPT/HCPCS: 58661; 82948; 88302; A9270; J1100; J1170; J1885; J2250; J2405; J2704; J3010; J7120